=== PATIENT | female | born 2005 | race Caucasian/White ===

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

== ENCOUNTER 2023-10-31 22:31 | Emergency (ER) | payer SELFPAY ==
[~2023-10-31] VITALS: Ht 175.2 cm; Wt 64.0 kg
[~2023-10-31 22:31] MED LIST changes: +VIBRAMYCIN100 MG PO
[2023-10-31 23:28] LABS: BASO # 0.1 10*3/uL (0.0-0.1); BASO % 0.4 % (0.0-1.0); EOS # 0.3 10*3/uL (0.0-0.4); EOS % 2.8 % (1.0-4.0); HEMATOCRIT 40.3 % (37.0-47.0); LYMPH # 4.5 10*3/uL (1.3-4.4); LYMPH % 39.6 % (27.0-41.0); MEAN CELL VOLUME 96.9 fl (81.0-99.0); MEAN CORPUSCULAR HGB 31.5 pg (27.0-31.0); MEAN CORPUSCULAR HGB CONC 32.5 g/dl (33.0-37.0); MEAN PLATELET VOLUME 12.4 fl (9.6-12.3); NEUT # 5.4 10*3/uL (2.3-7.9); PLATELET COUNT AUTOMATED 170 10*3/uL (130-400); RED BLOOD COUNT 4.16 10*6/uL (4.10-5.10); RED CELL DISTRI WIDTH 13.6 % (0-14.5); WHITE BLOOD COUNT 11.3 10*3/uL (4.8-10.8)
[2023-10-31 23:32] LABS: BILIRUBIN Negative (Negative); BLOOD Negative (Negative); CLARITY Clear (Clear); COLOR Yellow (Yellow); GLUCOSE Negative (Negative); KETONE Negative (Negative); LEUKO ESTERASE Negative (Negative); NITRITE Negative (Negative)
[2023-10-31 23:39] LABS: URINE AMPHETAMINES Negative (1000ng/ml); URINE BARBITURATES Negative (200ng/ml); URINE BENZODIAZEPINES Negative (200ng/ml); URINE CANNABINOIDS (THC) Positive (50ng/ml); URINE COCAINE Negative (300ng/ml); URINE METHADONE Negative (300ng/ml); URINE OPIATES Negative (300ng/ml); URINE PHENCYCLIDINE Negative (25ng/ml)
[2023-10-31 23:48] LABS: EPITHELIAL CELLS 16-20; WBC 0-2 wbc/hpf (0-5)
[2023-10-31 23:52] LABS: ALKALINE PHOSPHATASE 72 U/L (46-116); BETA-HCG, QUANT < 3.0 mIU/mL (3-10); BUN 7 mg/dl (9-23); CHLORIDE 106 mmol/L (98-107); ETHYL ALCOHOL < 3.0 mg/dl (<3); POTASSIUM 3.6 mmol/L (3.4-5.1); SGPT/ALT 12 U/L (5-49); TOTAL PROTEIN 6.8 gm/dL (6.0-8.0)
[2023-10-31] MEDS ORDERED: Ondansetron Hydrochloride 4 MG TAB SL ONE (23:55)
[2023-10-31] MEDS ORDERED: hydrOXYzine pamoate 25 MG CAP PO ONE (23:55)
[2023-11-01] MEDS ORDERED: ONDANSETRON4 MG SL (01:13)
== END 2023-11-01 01:18 | disposition home or self-care (01) ==
LOC: ED 22:31
PROVIDERS: Internal Medicine
DX: R11.0 Nausea (principal); Z79.2 Long term (current) use of antibiotics; Z79.899 Other long term (current) drug therapy; Z98.890 Other specified postprocedural states